=== PATIENT | male | born 1935 | race Caucasian/White ===

== ENCOUNTER 2021-02-10 09:38 | Emergency (ER) | payer MEDICARE, OTHER ==
[~2021-02-10] VITALS: Ht 162.6 cm; Wt 68.9 kg
--- NOTE | 2021-02-10 09:45 | NUR ---
BIB [id number],LACERATION TO FOREHEAD AND NASAL SWELLING, S/P TRIP/FALL WHILE WALKING IN SIDEWALK, NO LOSS OF CONSCIOUSNESS REPORTED. PATIENT A/OX4, [place] SPEAKING. EMT TRANSLATED FOR DR. DESHPANDE. PATIENT WAS ABLE TO RECALL INCIDENT. PATIENT CHANGED INTO A GOWN. ATTACHED TO THE AUDITOR IN CHARGE.
--- NOTE | 2021-02-10 10:00 | NUR ---
PATIENT TAKEN TO CT.
[2021-02-10 10:25] LABS: BASOPHILS % (AUTO) 0.4 % (0.0-2.0); EOSINOPHILS % (AUTO) 0.7 % (0.0-6.0); HEMATOCRIT 40 % (39-51); HEMOGLOBIN 13.2 g/dL (13.5-17.5); LYMPHOCYTES # (AUTO) 1.2 /CMM (0.8-4.8); LYMPHOCYTES % (AUTO) 15.6 % (20.0-44.0); MEAN CORPUSCULAR HGB CONC 33 g/dl (31.0-36.0); MEAN CORPUSCULAR VOLUME 90 fL (80-96); MONOCYTES # (AUTO) 0.3 /CMM (0.1-1.30); MONOCYTES % (AUTO) 3.7 % (2.0-12.0); NEUTROPHILS % (AUTO) 79.6 % (43.0-81.0); PLATELET COUNT (AUTO) 141 /CMM (150-450); RED BLOOD CELL COUNT(AUTO) 4.41 MIL/uL (4.5-6.0); WHITE BLOOD COUNT (AUTO) 7.5 K/uL (4.3-11.0)
--- NOTE | 2021-02-10 10:33 | NUR ---
PATIENT'S SON AT BEDSIDE.
[2021-02-10 10:53] LABS: ALBUMIN 3.3 g/dL (3.4-5.0); BILIRUBIN,DIRECT 0.1 mg/dL (0.0-0.2); BILIRUBIN,TOTAL 0.5 mg/dL (0.2-1.0); CALCIUM, SERUM 8.6 mg/dL (8.5-10.1); POTASSIUM 4.1 mmol/L (3.5-5.1); TOTAL PROTEIN, SERUM 6.9 g/dL (6.4-8.2)
--- NOTE | 2021-02-10 11:25 | NUR ---
PATIENT STOOD UP AND WAS ABLE TO AMBULATE PER SON HIS BASELINE. LAC REPAIR DONE, USED A DERMABOND FOR REPAIR. Patient discharged to home in stable condition. Written and verbal after care instructions given. Patient verbalizes understanding of instruction.
--- NOTE | 2021-02-10 11:37 | NUR ---
PATIENT A/OX4, BREATHING EVEN AND UNLABORED, NO SOB NOTED. PATIENT AMBULATES INDEPENDENTLY, AFTERCARE INSTRUCTIONS PROVIDED TO SON. Patient discharged to home in stable condition. Written and verbal after care instructions given. Patient verbalizes understanding of instruction.
[2021-02-10 11:38] VITALS: BP 124/66
== END 2021-02-10 11:39 | disposition home or self-care (01) ==
LOC: ER 09:41
DX: S01.81XA Laceration without foreign body of other part of head, initial encounter (principal); S01.21XA Laceration without foreign body of nose, initial encounter; I44.7 Left bundle-branch block, unspecified; W01.0XXA Fall on same level from slipping, tripping and stumbling without subsequent striking against object, initial encounter; Y93.01 Activity, walking, marching and hiking; Y92.89 Other specified places as the place of occurrence of the external cause; Y99.8 Other external cause status
CPT/HCPCS: 36415; 70450-TC; 71045-TC; 80048-TC; 80076-TC; 84484-TC; 85025-TC; 85730-TC

== ENCOUNTER 2021-08-29 22:38 | Inpatient (IN) | payer MEDICARE, OTHER ==
[~2021-08-29] VITALS: Ht 149.9 cm; Wt 69.9 kg
--- NOTE | 2021-08-29 23:01 | NUR ---
PATIENT BIBRA 102 FROM HOME C/O RIGHT SIDED WEAKNESS FOR THE PAST MONTH, PARTIAL RIGHT SIDED FACIAL DROOP. PER PATIENT SON, LEGS BECAME WEAKER TODAY. PATIENT IS A/O X 2-3, RR EVEN AND UNLABORED, NO SOB NOTED. PATIENT CONNECTED TO CARIDAC MONITOR AND POX.
--- NOTE | 2021-08-29 23:08 | NUR ---
CALLED CODE STROKE
--- NOTE | 2021-08-29 23:10 | NUR ---
TELEMED REQUEST IQ SENT, NEUROLOGIST PAGED
--- NOTE | 2021-08-29 23:12 | NUR ---
PT TO CT
[2021-08-29] MEDS ORDERED: IV NS 0.9% 0 ML IV ONE (23:13)
[2021-08-29] MEDS ORDERED: CT SWABBABLE VALVE TRANS SET 1 EA INFUS.SET MC ONE (23:13)
[2021-08-29] MEDS ORDERED: IOHEXOL-350 100 ML VIAL IV ONE (23:13)
--- NOTE | 2021-08-29 23:18 | NUR ---
Anselmo PERALTA. SPEAKING WITH Callum DOSS (NEURO)
[2021-08-29 23:20] LABS: BASOPHILS % (AUTO) 0.3 % (0.0-2.0); EOSINOPHILS % (AUTO) 0.6 % (0.0-6.0); HEMATOCRIT 39 % (39-51); HEMOGLOBIN 13.2 g/dL (13.5-17.5); LYMPHOCYTES # (AUTO) 1.4 K/uL (0.8-4.8); LYMPHOCYTES % (AUTO) 21.7 % (20.0-44.0); MEAN CORPUSCULAR HGB CONC 34 g/dl (31.0-36.0); MEAN CORPUSCULAR VOLUME 91 fL (80-96); MONOCYTES # (AUTO) 0.5 K/uL (0.1-1.30); MONOCYTES % (AUTO) 7.3 % (2.0-12.0); NEUTROPHILS # (AUTO) 4.5 K/uL (1.8-8.9); NEUTROPHILS % (AUTO) 70.1 % (43.0-81.0); PLATELET COUNT (AUTO) 153 K/uL (150-450); RED BLOOD CELL COUNT(AUTO) 4.31 MIL/uL (4.5-6.0); WHITE BLOOD COUNT (AUTO) 6.4 K/uL (4.3-11.0)
[2021-08-29 23:32] LABS: CARBON DIOXIDE 30 mmol/L (21-32); CHLORIDE 101 mmol/L (98-107); CREATININE 1.5 mg/dL (0.6-1.3); GLUCOSE 157 mg/dL (74-106); POTASSIUM 4.1 mmol/L (3.5-5.1); SODIUM SERUM 138 mmol/L (136-145); UREA NITROGEN, BLOOD 28 mg/dL (7-18)
[2021-08-29 23:43] LABS: ALANINE AMINOTRANSFERASE 15 U/L (12-78); ALBUMIN 3.5 g/dL (3.4-5.0); ALKALINE PHOSPHATASE 55 U/L (46-116); ASPARTATE AMINOTRANSFERASE 14 U/L (15-37); BILIRUBIN,DIRECT 0.1 mg/dL (0.0-0.2); BILIRUBIN,TOTAL 0.4 mg/dL (0.2-1.0); TOTAL PROTEIN, SERUM 6.9 g/dL (6.4-8.2)
[2021-08-30] MEDS ORDERED: MAGNESIUM HYDROXIDE 30 ML UDC PO PRN (00:30)
[2021-08-30] MEDS ORDERED: MAG HYDROX/AL HYDROX/SIMETH 30 ML UDC PO PRN (00:30)
[2021-08-30] MEDS ORDERED: ACETAMINOPHEN 325 MG TABLET PO PRN (00:30)
[2021-08-30] MEDS ORDERED: ONDANSETRON HCL/PF 4 MG/2 ML VIAL IVP PRN (00:30)
[2021-08-30] MEDS ORDERED: Z GUARD REMEDY 2 OZ OINT TP PRN (00:30)
[2021-08-30] MEDS ORDERED: TERA5CAP7 PO (08:28)
[2021-08-30] MEDS ORDERED: FURO40TA5 PO (08:28)
[2021-08-30] MEDS ORDERED: SACU1TAB4 PO (08:28)
[2021-08-30] MEDS ORDERED: ISOS30TA86 PO (08:28)
[2021-08-30] MEDS ORDERED: METO-358 PO (08:28)
[2021-08-30] MEDS ORDERED: ASPI-1420 PO (08:28)
[2021-08-30] MEDS ORDERED: APIX5TAB PO (08:28)
[2021-08-30] MEDS ORDERED: POTA8TAB3 PO (08:28)
[2021-08-30] MEDS ORDERED: ASPIRIN EC 81 MG TABLET.DR PO ONE (09:14)
[2021-08-30] MEDS: ASPIRIN EC 81 MG TABLET.DR PO SCH (09:15)
--- NOTE | 2021-08-30 11:30 | NUR ---
DR KIRK AT BEDSIDE
--- NOTE | 2021-08-30 12:38 | NUR ---
[facility] [phone] WANTS UPDATE WHEN ROOM CHANGES
[2021-08-30] MEDS ORDERED: ASPIRIN EC 81 MG TABLET.DR PO SCH (16:00)
[2021-08-30] MEDS: METOPROLOL SUCCINATE 50 MG TAB.SR.24H PO SCH (16:50)
[2021-08-30] MEDS: TERAZOSIN HCL 5 MG CAPSULE PO SCH (17:04)
[2021-08-30] MEDS ORDERED: APIXABAN 5 MG TABLET ONE (17:12)
[2021-08-30] MEDS: APIXABAN 5 MG TABLET PO SCH (17:15)
--- NOTE | 2021-08-30 17:42 | NUR ---
bed assigned [phone] for next shift
[2021-08-30 20:00] VITALS: BP 148/69
--- NOTE | 2021-08-30 20:45 | NUR ---
gave report to kemi Mae radha
--- NOTE | 2021-08-30 20:50 | NUR ---
RN NOTES: AT 2041 RECEIVED ENDORSEMENT FROM ATUL/ER/RN: -PATIENT WAS BROUGHT BY HIS SON IN ER, PER SON HISTORY OF COVID(+) EARLIER THIS YEAR, HE HAS GENERAL WEAKNESS, NOT ON HIMSELF FOR A MONTH, MEMORY PROBLEMS AND RIGHT SIDED WEAKNESS, ABLE TO WALK BEFORE BUT THIS PAST FEW DAYS VERY WEAK, TOGOLESE SPEAKING.NKA,ON ELIQUIZ,IV CANNULA RAC G#18, DX:GEMA, NO SKIN ISSUE,WHEELCHAIR BOUND.
--- NOTE | 2021-08-30 20:54 | NUR ---
[facility] MON[facility] UPDATED ABOUT ROOM CHANGE
[2021-08-30] MEDS ORDERED: HEPARIN SODIUM, PORCINE 5000 UNITS/1 ML VIAL SQ SCH (21:00)
[2021-08-30 21:10] VITALS: BP 148/69
--- NOTE | 2021-08-30 21:10 | NUR ---
RN NOTES: AT 2103 BROUGHT BY ER STAFF VIA ANGELIA ON SEMICONDUCTOR TESTING GROUP LEADER, TELE PATIENT, ON SINUS RHYTHM RATE-75, A/OX1 TO SELF ONLY, FARSI SPEAKING, CAN UNDERSTAND VERY LITTLE DANISH, HE WAS BROUGHT IN BY FAMILY DUE TO ALTERED IN LEVEL OF CONSCIOUSNESS, DX:GEMA, MED-RECON DONE IN ER.HE RECIEVED ASPIRIN 81MG, K TAB 10 mEQ,LASIX 40 MG AND HEPARIN 5,000 UNIT IN ER. IV CANNULA RAC G#18, PATENT. BODY ASSESSMENT DON: 1)SKIN DISCOLORATION ON THE RIGHT UPPER EXTREMITY 2) MULTIPLE SCATTERED RED SPOTS ON THE FRONTAL AND BACK AREA ALONG WITH BROWN PIGMENTATION AND SKIN TAGS. 3) NO EDEMA ON BUR AND BLE 4)RLE-OLD SCAR 5)NO BUMP ON THE HEAD,NO SWELLING ON THE RIGHT AND LEFT SHOULDER, NO SHORTENING ON BUE AND BLE. --ORIENTED TO UNIT AND STAFF, WE CONTINUE TO TALK HE COMMUNICATE MORE BETTER , A/O 1-2 WITH PERIODS OF CONFUSION AND FORGETFULNESS, HE WANTS TO GO HOME HE IS ASKING "WHY IM HERE?" RN EXPLAINED TO HIM SHORT AND IN SIMPLE WORDS HE UNDERSTAND.
[2021-08-30] MEDS: ATORVASTATIN 10 MG TABLET PO SCH (22:08)
--- NOTE | 2021-08-30 22:21 | NUR ---
RN NOTES: HE WANTS TO PEE, ASSISTED TO USE THE URINAL AT BED SIDE, ABLE TO TAKE HIS MEDS CRUSHED WITH APPLE SAUCE.TAKEN. Addendum: 08/30/21 at 2258 by BRODY HOWE RN ADDED NOTES: MEDICATION WAS PULLED OUT BY SANTOSH FROM THE [facility].
--- NOTE | 2021-08-30 22:58 | NUR ---
RN NOTES: IVF NS PULLED OUT BY JAI/RN FROM THE [facility], STARTED AT 60 ML/HR.PATIENT ON CLOSE WATCH, TRYING TO GET UP IN BED, CALL LIGHT KEPT WITHIN EASY REACH.BED LOW AND LOCKED.
[2021-08-30] MEDS: IV NS 0.9% 1,000 ML IV PRN (23:02)
[2021-08-31] VITALS: BP 146/78
--- NOTE | 2021-08-31 00:51 | NUR ---
RN NOTES: CALLS AND NEED ANTICIPATED, HE IS TRYING TO GET UP FROM HIS BED, EXPLAINED BY RN AND COMMERCIAL SINGER TO BE CAREFUL BECAUSE HE LOOKS WEAK AND UNABLE TO STAND WITHOUT SUPPORT AND ASSISTANCE HE WANTS TO GET UP WHEN HE PEE, EXPLAINED TO HE CAN PEE O THE URINAL.
[2021-08-31 04:00] VITALS: BP 144/67
--- NOTE | 2021-08-31 05:17 | NUR ---
RN NOTES: AT 0400 TO CHECK ORTHOSTATIC BP, SAMARA LYING POSITION WAS CHECKED BP-144/67 RI-70, UNABLE TO CHECK SITTING SHE WAS IN DEEP SLEEP, UNABLE TO TAKE STANDING BECAUSE UNABLE TO STAND, GAIT IS UNSTEADY. WILL TRY TO CHECK IT LATER WHEN HE IS AWAKE.
[2021-08-31 06:48] LABS: BASOPHILS % (AUTO) 0.6 % (0.0-2.0); EOSINOPHILS % (AUTO) 1.2 % (0.0-6.0); HEMATOCRIT 39 % (39-51); HEMOGLOBIN 13.2 g/dL (13.5-17.5); LYMPHOCYTES # (AUTO) 1.3 K/uL (0.8-4.8); LYMPHOCYTES % (AUTO) 20.2 % (20.0-44.0); MEAN CORPUSCULAR HGB CONC 34 g/dl (31.0-36.0); MEAN CORPUSCULAR VOLUME 91 fL (80-96); MONOCYTES # (AUTO) 0.5 K/uL (0.1-1.30); MONOCYTES % (AUTO) 7.6 % (2.0-12.0); NEUTROPHILS # (AUTO) 4.4 K/uL (1.8-8.9); NEUTROPHILS % (AUTO) 70.4 % (43.0-81.0); PLATELET COUNT (AUTO) 126 K/uL (150-450); RED BLOOD CELL COUNT(AUTO) 4.31 MIL/uL (4.5-6.0); WHITE BLOOD COUNT (AUTO) 6.3 K/uL (4.3-11.0)
[2021-08-31 07:09] LABS: ALBUMIN 3.3 g/dL (3.4-5.0); BILIRUBIN,TOTAL 0.7 mg/dL (0.2-1.0); CALCIUM, SERUM 9.5 mg/dL (8.5-10.1); MAGNESIUM 2.2 mg/dL (1.8-2.4); PHOSPHORUS 3.6 mg/dL (2.5-4.9); POTASSIUM 4.3 mmol/L (3.5-5.1); TOTAL PROTEIN, SERUM 6.8 g/dL (6.4-8.2)
--- NOTE | 2021-08-31 07:39 | NUR ---
RN NOTES: UNABLE TO CHECK ORTHOSTATIC BP, HE IS STILL ASLEEP,FOR LABS THIS MORNING, KEPT CALL LIGHT WITHIN EASY REACH, FALL AND SAFETY PRECAUTION OBSERVED, ENDORSED FOR CONTINUITY OF CARE.
--- NOTE | 2021-08-31 07:54 | NUR ---
MS RN AM SHIFT NOTES - OPENING REPORT RECEIVED FROM PM RN AT BEDSIDE. Pt. WITHOUT ACUTE DISTRESS AT THIS TIME. EYES CLOSED. RR EVEN AND UNLABORED. VSS.
--- NOTE | 2021-08-31 08:20 | NUR ---
RN NOTES ITINERANT TEACHER ASSISTANT AT BEDSIDE.
[2021-08-31] MEDS ORDERED: FUROSEMIDE 40 MG TABLET PO SCH (09:00)
[2021-08-31] MEDS ORDERED: POTASSIUM CHLORIDE 10 MEQ TABLET.SA PO SCH (09:00)
[2021-08-31] MEDS: ASPIRIN EC 81 MG TABLET.DR PO SCH (09:12)
[2021-08-31] MEDS: ISOSORBIDE MONONITRATE (30MG) 30 MG TAB.SR.24H PO SCH (09:13)
[2021-08-31] MEDS: APIXABAN 5 MG TABLET PO SCH ×2 (09:13→16:16)
--- NOTE | 2021-08-31 09:15 | NUR ---
MS RN NOTES J2EE PROGRAMMER AT Pt BEDSIDE FOR ECHO AND CAROTID DUPLEX COMPLETED
--- NOTE | 2021-08-31 09:20 | NUR ---
RN NOTES PATIENT SEEN BY PT FOR EVAL.
--- NOTE | 2021-08-31 10:52 | NUR ---
RN NOTES FAMILY/VISITOR AT BEDSIDE; WAS INFORMED THAT PATIENT HAD MENTAL/PHYSICAL CHANGES BACK IN OCTOBER OF THIS YEAR DURING COVID BUT WAS NOT TAKEN TO THE HOSPITAL. EXPLAINED TO FAMILY/VISITOR THAT PATIENT MAY HAVE HAD A POSSIBLE CVA AT THAT TIME AND IMPORTANCE OF HIS SYMPTOMS TO BE CHECKED AT THE HOSPITAL; VERBALIZED UNDERSTANDING. WILL CONTINUE TO MONITOR PATIENT ACCORDINGLY.
--- NOTE | 2021-08-31 13:00 | NUR ---
RN NOTES PATIENT SEEN BY DR. KIRK TODAY; WILL HAVE NEURO CONSULT IN AM. PATIENT ABLE TO USE FWW W/ MIN-MOD ASSISTANCE FOR AMBULATION. ENCOURAGED TO REST WHENEVER POSSIBLE.
[2021-08-31] MEDS: METOPROLOL SUCCINATE 50 MG TAB.SR.24H PO SCH (16:16)
--- NOTE | 2021-08-31 17:13 | NUR ---
RN NOTES PATIENT CURRENTLY EATING DINNER AT THE MOMENT; ASSISTED W/ MEAL SET-UP IN BED. ABLE TO USE LUE FOR EATING.
[2021-08-31] MEDS: TERAZOSIN HCL 5 MG CAPSULE PO SCH (17:15)
--- NOTE | 2021-08-31 19:20 | NUR ---
TRANSMISSION TECHNICIAN OPENING NOTES Patient is awake, A&Ox1, denies pain or discomfort. Patient repositioned weak on R side slurred speech as per admission baseline. 3 side rails up bed alarm on, bed height low, call light within reach. No signs of distress. Sr on monitor. Will continue to monitor pt.
[2021-08-31 20:00] VITALS: BP 130/61
[2021-08-31] MEDS: ATORVASTATIN 10 MG TABLET PO SCH (21:26)
[2021-09-01] VITALS: BP 127/63
[2021-09-01 04:00] VITALS: BP 148/79
--- NOTE | 2021-09-01 06:10 | NUR ---
CLOSING RN NOTES Patient stable overnight. VS WNL. SR with BBB in 60s on monitor. No change in mental status. Patient had 1 episode of incontinence but changed promptly otherwise pt. using urinal with clear yellow urine output. IV to RAC #18G patent and intact infusing NS at 60cc/hr.
[2021-09-01] MEDS: IV NS 0.9% 1,000 ML IV PRN (06:16)
--- NOTE | 2021-09-01 07:30 | NUR ---
AIR CARGO SPECIALIST OPENING NOTES RECEIVED PT AWAKE IN BED IN NO ACUTE SIGNS OF DISTRESS. A/O X1-2. ROMANSH SPEAKING DENIES PAIN OR ANY DISCOMFORTS AT THIS TIME. ON ROOM AIR, RESPIRATIONS EVEN AND UNLABORED. ON EXTERNAL BATH SOLUTION MAKER WITH CURRENT READING OF NSR WITH BBB'S, HR ON THE 60'S, NO C/O CARDIAC DISTRESS VOICED AT THIS TIME. IV ACCESS ON RAC G#19 INTACT WITH IVF OF NS @ 60ML/HR INFUSING WELL, NO S/SX OF INFILTRATION NOTED. FALL AND SAFETY MEASURES IN PLACE: BED ALARM ON, BED IN LOW AND LOCKED POSITION, CALL LIGHT AND BEDSIDE TABLE WITHIN REACH. SIDE RAILS UP X2. WILL CONTINUE TO MONITOR PT ACCORDINGLY.
[2021-09-01] MEDS: ASPIRIN EC 81 MG TABLET.DR PO SCH (08:25)
[2021-09-01] MEDS: APIXABAN 5 MG TABLET PO SCH ×2 (08:25→16:27)
[2021-09-01] MEDS: ISOSORBIDE MONONITRATE (30MG) 30 MG TAB.SR.24H PO SCH (08:26)
[2021-09-01 09:33] VITALS: BP 158/74
--- NOTE | 2021-09-01 11:19 | NUR ---
RN NOTES PHYSICAL THERAPY DONE WITH PHYSICAL THERAPIST. PT WALKED WITH FWW WITH ASSISTANCE CONTACT GUARD ASSIST.
[2021-09-01 15:59] VITALS: BP 108/61
[2021-09-01] MEDS ORDERED: ATOR10TA PO (16:03)
[2021-09-01] MEDS: METOPROLOL SUCCINATE 50 MG TAB.SR.24H PO SCH (16:26)
[2021-09-01] MEDS: TERAZOSIN HCL 5 MG CAPSULE PO SCH (17:04)
--- NOTE | 2021-09-01 18:41 | NUR ---
MS RN CLOSING NOTES PT AWAKE IN BED WITH DAUGHTER PRESENT AT BEDSIDE. HOB ELEVATED. A/O X1-2. GREENLANDIC SPEAKING WITH SOME CONFUSION NOTED . ON ROOM AIR, TOLERATING WELL, RESPIRATIONS EVEN AND UNLABORED. IV ACCESS ON RAC G#18 INTACT, PATENT AND FLUSHES WELL. PT TURNED AND REPOSITIONED IN BED Q 2HRS AND PRN. ALL NEEDS AND CARE PROVIDED WELL. FALL AND SAFETY MEASURES IN PLACE: BED ALARM ON, BED IN LOW AND LOCKED POSITION, CALL LIGHT AND BEDSIDE TABLE WITHIN REACH. SIDE RAILS UP X2. WILL ENDORSE TO DIET ASSISTANT NURSE FOR OSVALDO.
--- NOTE | 2021-09-01 19:30 | NUR ---
ODD PIECE CHECKER OPENING NOTES RECEIVED PATIENT AWAKE LAYING IN BED. PATIENT IS A/O X1-2. PATIENT IS STABLE ON ROOM AIR. IV ACCESS NOTED IN RAC G#18, WHICH IS INTACT, PATENT, AND FLUSHING WELL. PATIENT'S IN NO ACUTE DISTRESS AT THIS TIME. SAFETY MEASURES IN PLACE: BED LOCKED, BED ALARM ON, SR UPX3, AND CALL LIGHT WITHIN REACH OF THE PATIENT. WILL CONTINUE TO MONITOR THE PATIENT
[2021-09-01 20:00] VITALS: BP 120/55
[2021-09-01] MEDS: ATORVASTATIN 10 MG TABLET PO SCH (21:04)
[2021-09-02] VITALS: BP 121/56
[2021-09-02 04:00] VITALS: BP 134/73
[2021-09-02 06:50] LABS: BASOPHILS % (AUTO) 0.5 % (0.0-2.0); EOSINOPHILS % (AUTO) 2.9 % (0.0-6.0); HEMATOCRIT 37 % (39-51); HEMOGLOBIN 12.2 g/dL (13.5-17.5); LYMPHOCYTES % (AUTO) 20.9 % (20.0-44.0); MEAN CORPUSCULAR HGB CONC 34 g/dl (31.0-36.0); MEAN CORPUSCULAR VOLUME 90 fL (80-96); MONOCYTES # (AUTO) 0.4 K/uL (0.1-1.30); MONOCYTES % (AUTO) 7.8 % (2.0-12.0); NEUTROPHILS # (AUTO) 3.4 K/uL (1.8-8.9); NEUTROPHILS % (AUTO) 67.9 % (43.0-81.0); PLATELET COUNT (AUTO) 125 K/uL (150-450); RED BLOOD CELL COUNT(AUTO) 4.06 MIL/uL (4.5-6.0)
[2021-09-02 07:09] LABS: CALCIUM, SERUM 8.7 mg/dL (8.5-10.1); CREATININE 0.9 mg/dL (0.6-1.3); MAGNESIUM 1.8 mg/dL (1.8-2.4); PHOSPHORUS 3.6 mg/dL (2.5-4.9); POTASSIUM 3.9 mmol/L (3.5-5.1)
--- NOTE | 2021-09-02 07:30 | NUR ---
ELECTRICAL PROSPECTOR NOTES PT IN BED, ASLEEP, EASILY AROUSABLE, CALL LIGHT WITHIN REACH, NO SIGN OF PAIN OR DISTRESS, KEPT WARM AND COMFORTABLE IN BED.
[2021-09-02 08:25] VITALS: BP 158/76
[2021-09-02] MEDS: ASPIRIN EC 81 MG TABLET.DR PO SCH (08:26)
[2021-09-02 08:28] VITALS: BP 135/70
[2021-09-02] MEDS: ISOSORBIDE MONONITRATE (30MG) 30 MG TAB.SR.24H PO SCH (08:28)
[2021-09-02] MEDS: APIXABAN 5 MG TABLET PO SCH (08:30)
--- NOTE | 2021-09-02 14:25 | NUR ---
MS ARMY MANAGER NOTE: MD EVALUATION COMPLETE. Pt. CLEARED FOR D/C TO HOME WITH HH. Pt's SON AT BEDSIDE, D/C INSTRUCTIONS PROVIDED VERBALLY. SON VERBALIZES UNDERSTANDING, NO F/U QUESTIONS. PRINTED INSTRUCTIONS SIGNED, COPIES SENT WITH SON. INVENTORY SHEET SIGNED AND COPY SENT WITH SON. RX ELECTRONICALLY SENT. Pt. IN NAD AND STABLE AT TIME OF D/C. NO NEW SKIN ISSUES NOTED/OBSERVED/REPORTED. R PERIPHERAL IV D/C WITH CATHETER TIP INTACT. Pt. 2 PERSON ASSIST TO W/C, ESCORTED TO SON'S CAR, 2 PERSON ASSIST INTO VEHICLE, SEATBELT APPLIED
== END 2021-09-02 14:30 | disposition home health service (06) | DRG 684 ==
LOC: ER 22:38 → TRANSITION 08-30 04:29 → TELE 08-30 17:46 → MED 09-02 10:01
PROVIDERS: ADMIT Nurse Practitioner Acute Care; ATTEND Internal Medicine
DX: N17.0 Acute kidney failure with tubular necrosis (principal); Z86.16 Personal history of COVID-19; Z20.822 Contact with and (suspected) exposure to COVID-19; I25.10 Atherosclerotic heart disease of native coronary artery without angina pectoris; I11.0 Hypertensive heart disease with heart failure; I50.9 Heart failure, unspecified; E11.9 Type 2 diabetes mellitus without complications; F03.90 Unspecified dementia, unspecified severity, without behavioral disturbance, psychotic disturbance, mood disturbance, and anxiety; Z79.01 Long term (current) use of anticoagulants; Z86.73 Personal history of transient ischemic attack (TIA), and cerebral infarction without residual deficits; Z95.0 Presence of cardiac pacemaker; Z95.1 Presence of aortocoronary bypass graft; Z95.2 Presence of prosthetic heart valve; R47.81 Slurred speech; I65.22 Occlusion and stenosis of left carotid artery
CPT/HCPCS: 36415; 70450-TC; 71045-TC; 80048-TC; 80053-TC; 80061-TC; 80076-TC; 83735-TC; 84100-TC; 84484-TC; 85025-TC; 85378-TC; 85730-TC; 87081-TC; 93307-TC; 93880-TC; 93970-TC; 97112-TC; 97116-TC; 97530-TC; C9803; G0378; J2405; J7030; J7050; Q9967

== ENCOUNTER 2022-04-14 11:20 | Emergency (ER) | payer MEDICARE, OTHER ==
[~2022-04-14] VITALS: Ht 172.7 cm; Wt 61.2 kg
[~2022-04-14 11:20] MED LIST: APIX5TAB PO; ASPI-1420 PO; ATOR10TA PO; FURO40TA5 PO; ISOS30TA86 PO; METO-358 PO; POTA8TAB3 PO; SACU1TAB4 PO; TERA5CAP7 PO
--- NOTE | 2022-04-14 11:30 | NUR ---
VICTORINA RAAnat From Home "Wheelchair Bound was trying to get up and fell face forward. Hx CVA 6mos ago. Oriented to self only- Normal Mentation". The patient is alert to self, able to communicate verbally. In room air, respiration regular and unlabored. The patient is attached to the monitor. Will continue to monitor the patient.
--- NOTE | 2022-04-14 12:00 | NUR ---
TECH AT BEDSIDE FOR WOUND CARE
--- NOTE | 2022-04-14 13:34 | NUR ---
PT RETURNED FROM RADIOLOGY
[2022-04-14] MEDS ORDERED: LIDOCAINE 1% INJ 50 ML MDV IJ ONE (13:42)
--- NOTE | 2022-04-14 14:19 | NUR ---
DR RAMOS AT BEDSIDE FOR LAC REPAIR
--- NOTE | 2022-04-14 15:28 | NUR ---
CALLED [facility] AND SET UP BLS TRANSPORT ETA [phone]
--- NOTE | 2022-04-14 17:18 | NUR ---
NEW ETA [phone] PER "[facility]" [facility].
--- NOTE | 2022-04-14 18:06 | NUR ---
REPORT GIVEN TO AMBULANCE STAFF
--- NOTE | 2022-04-14 18:49 | NUR ---
THE PATIENT IS DISCHARGED TO HOME IN STABLE CONDITION VIA ARRANGED TRANSPO
[2022-04-14 18:50] VITALS: BP 128/67
== END 2022-04-14 18:50 | disposition home or self-care (01) ==
LOC: ER 11:21
DX: S01.81XA Laceration without foreign body of other part of head, initial encounter (principal); Z79.899 Other long term (current) drug therapy; W05.0XXA Fall from non-moving wheelchair, initial encounter; Y93.89 Activity, other specified; Y92.89 Other specified places as the place of occurrence of the external cause; Y99.8 Other external cause status
CPT/HCPCS: 12013; 70450; 72125; 99285; J3490

== ENCOUNTER 2023-01-17 19:35 | Inpatient (IN) | payer MEDICARE, OTHER ==
[~2023-01-17] VITALS: Ht 160 cm; Wt 57.6 kg
[~2023-01-17 19:35] MED LIST changes: +FUROSEMIDE 20 MG/2 ML VIAL IV ONE
--- NOTE | 2023-01-17 19:50 | NUR ---
[id number] FROM HOME C/O SOB X2DAYS. SATTING 84% RA. ON O2 4LPM VIA N/C SATS 94% PT IS AAOX0. AWAKE BUT CANNOT COMMUNICATE WELL. CAME WITH BILATERAL UPPER AND LOWER EXTREMITIES EDEMA, WITH DRESSED WOUNDS ON RIGHT ELBOW, BILATERAL FEET AND CUSHION ON LEFT FOOT. PATIENT HAS IV ACCESS ON LEFT FA G20. +SOB, + CRACKLES BILATERAL LUNGS. ATTACHED TO MONITOR. VITALS CHECKED.
--- NOTE | 2023-01-17 19:57 | NUR ---
EKG DONE AT BEDSIDE
--- NOTE | 2023-01-17 20:00 | NUR ---
BLOOD DRAWN AND SENT TO LAB
--- NOTE | 2023-01-17 20:04 | NUR ---
MOVE SHEET SUBMITTED.
--- NOTE | 2023-01-17 20:18 | NUR ---
COVID SWAB DONE AND SENT TO LAB
--- NOTE | 2023-01-17 20:19 | NUR ---
URINE SPECIMEN COLLECTED AND SENT TO LAB
[2023-01-17 20:22] LABS: BASOPHILS % (AUTO) 0.3 % (0.0-2.0); EOSINOPHILS % (AUTO) 0.1 % (0.0-6.0); HEMATOCRIT 36 % (39-51); HEMOGLOBIN 11.2 g/dL (13.5-17.5); LYMPHOCYTES % (AUTO) 8.1 % (20.0-44.0); MEAN CORPUSCULAR HGB CONC 32 g/dl (31.0-36.0); MEAN CORPUSCULAR VOLUME 90 fL (80-96); MONOCYTES # (AUTO) 0.4 K/uL (0.1-1.30); NEUTROPHILS # (AUTO) 10.6 K/uL (1.8-8.9); NEUTROPHILS % (AUTO) 88.5 % (43.0-81.0); PLATELET COUNT (AUTO) 139 K/uL (150-450); RED BLOOD CELL COUNT(AUTO) 3.99 MIL/uL (4.5-6.0); WHITE BLOOD COUNT (AUTO) 11.9 K/uL (4.3-11.0)
--- NOTE | 2023-01-17 20:32 | NUR ---
FOLLOWED UP CLIENT RESOLUTION SPECIALIST
--- NOTE | 2023-01-17 20:39 | NUR ---
IVETTE RDZ AT BEDSIDE
--- NOTE | 2023-01-17 20:39 | NUR ---
XRAY DONE AT BEDSIDE
[2023-01-17 20:44] LABS: CALCIUM, SERUM 8.5 mg/dL (8.5-10.1); CARBON DIOXIDE 23 mmol/L (21-32); CHLORIDE 104 mmol/L (98-107); CREATININE 0.8 mg/dL (0.6-1.3); GLUCOSE 176 mg/dL (74-106); POTASSIUM 5.2 mmol/L (3.5-5.1); SODIUM SERUM 134 mmol/L (136-145); UREA NITROGEN, BLOOD 25 mg/dL (7-18)
[2023-01-17 20:48] LABS: ALANINE AMINOTRANSFERASE 30 U/L (12-78); ALBUMIN 2.5 g/dL (3.4-5.0); ALKALINE PHOSPHATASE 85 U/L (46-116); ASPARTATE AMINOTRANSFERASE 35 U/L (15-37); BILIRUBIN,DIRECT 0.2 mg/dL (0.0-0.2); BILIRUBIN,TOTAL 0.6 mg/dL (0.2-1.0); TOTAL PROTEIN, SERUM 5.9 g/dL (6.4-8.2)
--- NOTE | 2023-01-17 20:53 | NUR ---
LACTIC ACID 2.2
--- NOTE | 2023-01-17 21:15 | NUR ---
PLACED PT ON NRB AT 15LPM. PT SATURATIONG 98%
--- NOTE | 2023-01-17 21:16 | NUR ---
dr rai on the phone with the family discussing patient's condition and code status.
--- NOTE | 2023-01-17 21:28 | NUR ---
NOELLE YIP PCAT INSTRUCTOR AT PT'S BEDSIDE FOR EVAL
--- NOTE | 2023-01-17 21:43 | NUR ---
TROPONIN 217.7
--- NOTE | 2023-01-17 21:50 | NUR ---
DR MOLINA SPOKE TO THE PATIENT'S SON AND DAUGHTER AT THE BED SIDE REGARDING PT'S CODE STATUS AND EXPLAINED THE OPTIONS. SON SIGNED THE POLST DNR/DRI WITH SELECTIVE MEASURES. NOELLE YIP, HOSPITALIST MADE AWARE.
[2023-01-17 21:51] LABS: BILIRUBIN,URINE NEGATIVE (NEGATIVE); COLOR,URINE YELLOW (YELLOW); LEUKOCYTE ESTERASE ,URINE TRACE (NEGATIVE); NITRITE, URINE NEGATIVE (NEGATIVE); PH,URINE 5.5 (5.0-8.0); PROTEIN,URINE TRACE mg/dl (NEGATIVE); UGLUCOSE NEGATIVE (NEGATIVE); UROBILINOGEN,URINE 0.2 EU/dL (0.2)
[2023-01-17] MEDS ORDERED: PIPERACILLIN /TAZOBACTAM 3.375 G VIAL IV ONE (21:57)
[2023-01-17] MEDS ORDERED: VANCOMYCIN 1 GM VIAL ONE (21:57)
[2023-01-17] MEDS ORDERED: ONDANSETRON HCL/PF 4 MG/2 ML VIAL IVP PRN (22:00)
[2023-01-17] MEDS ORDERED: VANCOMYCIN 1 GM in IV D5W 250 ML IV ONE (22:00)
[2023-01-17] MEDS ORDERED: FUROSEMIDE 20 MG/2 ML VIAL IV ONE (22:00)
[2023-01-17] MEDS ORDERED: PIPERACILLIN /TAZOBACTAM 3.375 G in IV D5W 50 ML IV ONE (22:00)
[2023-01-17] MEDS ORDERED: ENOXAPARIN SODIUM 40 MG/0.4 ML DISP.SYRIN SQ SCH ×2 (22:00→23:30)
[2023-01-17] MEDS ORDERED: MAG HYDROX/AL HYDROX/SIMETH 30 ML UDC PO PRN (22:00)
[2023-01-17] MEDS ORDERED: Z GUARD REMEDY 4 OZ OINT TP PRN (22:00)
[2023-01-17] MEDS ORDERED: MAGNESIUM HYDROXIDE 30 ML UDC PO PRN (22:00)
[2023-01-17] MEDS ORDERED: LEVALBUTEROL HCL NEB 1.25 MG/0.5 ML VIAL.NEB NEB PRN (22:00)
[2023-01-17] MEDS ORDERED: ACETAMINOPHEN 325 MG TABLET PO PRN (22:00)
--- NOTE | 2023-01-17 22:10 | NUR ---
REPORT GIVEN TO AVELINO PARKER
[2023-01-17 22:21] LABS: BACTERIA,URINE 4+ /HPF (None Seen); RBC,URINE 0-2 /HPF (0-2)
[2023-01-17 22:22] LABS: MUCUS,URINE Moderate /LPF (None Seen)
[2023-01-17] MEDS ORDERED: IV NS 0.9% 500 ML BAG IV ONE (22:30)
--- NOTE | 2023-01-17 22:32 | NUR ---
TRANSFERRED TO [facility] UNDER ACLS
[2023-01-17 22:35] VITALS: BP 115/73
--- NOTE | 2023-01-17 22:35 | NUR ---
INSURANCE VERIFY REP NOTES ADMITTED A 87 Y/O MALE PATIENT FROM ER, VIA STRETCHER WITH DX RESPIRATORY FAILURE. ALERT ORIENTED X 1, ON NRB @ 15 LPM SATING AT 97%. AFEBRILE, NO S/S OF DISTRESS NOTED. NOTED WITH LEFT FOREARM #20 PERIPHERAL LINE, RUNNING WITH VANCOMYCIN, STARTED AT ER. BODY ASSESSMENT DONE TOOK PHOTO AND PLACED IT IN PATIENT CHART. V/S TAKEN AND RECORDED. ALL SAFETY PRECAUTION PROVIDED. BED IN LOWEST POSITION, LOCKED. BED ALARM ARMED. CALL LIGHT WITH IN REACH. CONTINUE TO MONITOR.
[2023-01-17] MEDS ORDERED: CEFTRIAXONE 1 G in IV D5W 50 ML IV SCH (23:00)
[2023-01-17] MEDS ORDERED: AZITHROMYCIN 500 MG in IV D5W 250 ML IV SCH (23:00)
--- NOTE | 2023-01-17 23:19 | NUR ---
RN NOTES PER DNP NOELLE YIP, DO NOT ADMINISTER THE NS 500ML IV ONCE. NOTED AND CARRIED OUT
[2023-01-18] VITALS: BP 130/72
--- NOTE | 2023-01-18 00:20 | NUR ---
RN NOTES NOTIFIED KESHA YIP REGARDING LATEST LACTIC ACID- 2.0. NO NEW ORDER.
[2023-01-18] MEDS: IPRATROPIUM NEB FS 0.5 MG/2.5 ML AMPUL.NEB NEB SCH ×2 (03:48→08:41)
[2023-01-18 04:00] VITALS: BP 135/83
[2023-01-18] MEDS ORDERED: PIPERACILLIN /TAZOBACTAM 3.375 G in IV D5W 50 ML IV SCH (04:00)
--- NOTE | 2023-01-18 04:05 | NUR ---
RN NOTE TRANSFER OF CARE RECEIVED FROM YAHAIRA YOU.
[2023-01-18] MEDS ORDERED: PIPERACILLIN /TAZOBACTAM 3.375 G VIAL IV ONE (05:04)
--- NOTE | 2023-01-18 05:06 | NUR ---
RN NOTE ABG DONE BY RT GALEANO. NOELLE YIP NP MADE AWARE OF THE RESULT; AWAITING REPLY. PATIENT PLACED ON 5 LPM VIA NASAL CANNULA. WILL CONTINUE TO MONITOR
[2023-01-18 05:13] LABS: ABG BASE EXCESS -2.3 mmol/L; ABG OXYGEN SATURATION 99.3 % (92.0-98.5); ABG PCO2 46.4 mmHg (35.0-45.0); ABG PH 7.329 (7.350-7.450); ABG PO2 271.7 mmHg (75.0-100.0); AaDO2 394.9 mmHg; COHb 0.3 % (0.5-1.5); MetHb 0.1 % (0.0-1.5); O2Hb 98.9 % (94.0-97.0); SITE, ABG Right Radial; VENT MODE, BG 15L NRB 100%
[2023-01-18 07:17] LABS: CALCIUM, SERUM 8.2 mg/dL (8.5-10.1); CARBON DIOXIDE 24 mmol/L (21-32); CHLORIDE 103 mmol/L (98-107); CREATININE 0.7 mg/dL (0.6-1.3); GLUCOSE 153 mg/dL (74-106); MAGNESIUM 2.1 mg/dL (1.8-2.4); PHOSPHORUS 4.5 mg/dL (2.5-4.9); POTASSIUM 4.6 mmol/L (3.5-5.1); SODIUM SERUM 134 mmol/L (136-145); UREA NITROGEN, BLOOD 24 mg/dL (7-18)
[2023-01-18 07:21] LABS: BASOPHILS % (AUTO) 0.1 % (0.0-2.0); HEMATOCRIT 33 % (39-51); HEMOGLOBIN 10.7 g/dL (13.5-17.5); LYMPHOCYTES # (AUTO) 0.7 K/uL (0.8-4.8); LYMPHOCYTES % (AUTO) 7.6 % (20.0-44.0); MEAN CORPUSCULAR HGB CONC 33 g/dl (31.0-36.0); MEAN CORPUSCULAR VOLUME 88 fL (80-96); MONOCYTES # (AUTO) 0.4 K/uL (0.1-1.30); NEUTROPHILS # (AUTO) 8.3 K/uL (1.8-8.9); NEUTROPHILS % (AUTO) 88.3 % (43.0-81.0); PLATELET COUNT (AUTO) 91 K/uL (150-450); RED BLOOD CELL COUNT(AUTO) 3.72 MIL/uL (4.5-6.0); WHITE BLOOD COUNT (AUTO) 9.4 K/uL (4.3-11.0)
--- NOTE | 2023-01-18 07:23 | NUR ---
RN NOTE PATIENT IN BED; AWAKE, NONVERBAL. ON O2 INHALATION @ 3 LPM VIA NASAL CANNULA; SATURATING 98%. IN NO APPARENT DISTRESS. NO S/S OF PAIN OR DISCOMFORT. WITH IV ACCESS ON LEFT HAND; PATENT, INTACT AND SALINE LOCKED. ON TELE MONITORING WITH READING OF SR WITH PVC'S, PAC'S AND BBB HR-88 BPM. ALL NEEDS ATTENDED. SAFETY PRECAUTIONS IN PLACE: HEAD OF BED ELEVATED, CALL LIGHT AND TABLE WITHIN REACH, SIDE RAILS UP X 3, BED IN LOWEST LOCKED POSITION. ENDORSED TO AVELINO SANTILLAN FOR OSVALDO.
[2023-01-18 08:00] VITALS: BP 128/79
--- NOTE | 2023-01-18 08:45 | NUR ---
WOUND CARE CONSULT: PT PRESENTS WITH MULTIPLE WOUNDS AND SKIN ISSUES INCLUDING SACRAL STAGE 3 PRESSURE ULCER, RT ELBOW STAGE 4 PRESSURE ULCER, LEFT HIP UNSTAGEABLE PRESSURE ULCER, RT HEEL WOUND WITH NECROTIC TISSUE, LEFT HEEL FRAGILE SCAR AND INCONTINENCE ASSOCIATED SKIN DAMAGE TO SCROTUM, ALL PRESENT ON ADMISSION. DR AMIN AND DR SORIA CALLED FOR SURGICAL AND DPM CONSULTS. 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 PT TO BE PLACED ON ISOFLEX LOW AIRLOSS BED. DISCUSSED SKIN PROTECTION RECOMMENDATIONS WITH NURSING STAFF. IN AGREEMENT WITH PLAN OF CARE. Addendum: 01/18/23 at 0849 by CARLO ORTIZ WNDNU Amended: Links added.
--- NOTE | 2023-01-18 08:45 | NUR ---
TD RN notes Received handover from AVELINO Baron. Patient's GCS [id number]. SPO2 >95% with 3L oxygen. Auscultated his lungs and noted that his right side is clear while the lung sounds over the left entire lung is diminished with crackles noted. Left FA #20 is dry and patent. Bed rails are up x2, call bedolla is placed within reach, bed is locked and placed in the lowest position. Will continue monitoring and care. .
[2023-01-18] MEDS ORDERED: APIXABAN 5 MG TABLET PO SCH (09:00)
[2023-01-18] MEDS ORDERED: ASPIRIN EC 81 MG TABLET.DR PO SCH (09:00)
[2023-01-18] MEDS ORDERED: ISOSORBIDE MONONITRATE (30MG) 30 MG TAB.SR.24H PO SCH (09:00)
[2023-01-18] MEDS ORDERED: METOPROLOL SUCCINATE 50 MG TAB.SR.24H PO SCH (09:00)
[2023-01-18] MEDS: PIPERACILLIN /TAZOBACTAM 3.375 G in IV D5W 50 ML IV SCH ×2 (11:20→11:22)
[2023-01-18 11:30] VITALS: BP 128/69
--- NOTE | 2023-01-18 11:30 | NUR ---
CHARLINE RN NOte Noted that patient was in distress as he was sweating. coal tram driver showed ST HR 110/min. BP 129/63mmhg, Spo2 97% with 3L oxygen. Will inform hospitalist.
--- NOTE | 2023-01-18 11:51 | NUR ---
CHARLINE RN NOTE MORTGAGE LOAN FUNDER Raad Kimball arrived and checked on patient. Use of accessory muscle was observed, he then ordered an ABG and stat 100mg lasix. Contacted RT Disha for stat ABG. SpO2 was 85%, 100% oxygen was given via NRM.
[2023-01-18] MEDS ORDERED: PROSOURCE / PROSTAT (PYXIS) 30 ML UDC GT SCH (12:00)
[2023-01-18] MEDS ORDERED: FUROSEMIDE 100 MG/10 ML VIAL IV SCH (12:05)
--- NOTE | 2023-01-18 12:10 | NUR ---
CHARLINE RN NOte RT arrived and tried to take the ABG. Noted that patient had very weak pulse. Switched to bagging patient instead of NRM.
--- NOTE | 2023-01-18 12:25 | NUR ---
CHARLINE RN Note Patient has stopped breathing and pulse is not palpable. Pupils are fixed and dilated at 8mm. EDUCATION ASSISTANT Raad Kimball pronounced at 12:25. Contacted family about patient's deterioration and asked them to come to the hospital immediately.
[2023-01-18] MEDS ORDERED: FUROSEMIDE 100 MG/10 ML VIAL IV ONE (12:30)
--- NOTE | 2023-01-18 12:35 | NUR ---
RT G DRAWN SAMPLE QNS MACHINE UNABLE TO READ
--- NOTE | 2023-01-18 15:01 | NUR ---
CHARLINE RN NOTe Was able to contact insurance account executive's office for report. Roping Machine Tender Tamra Valenzuela said that patient is not for insurance account executive. Last office was provided. Patient's family signed the document and was told about the process. Security came and moss picker the corpse at 15:01.
--- NOTE | 2023-01-18 15:47 | NUR ---
APS: FLAQUITA made APS report #[id number] for pt. who cme from home with multiple wounds. See wound nurse for details.
[2023-01-18] MEDS ORDERED: ARGININE/GLUTAMINE/CALCIUM BMB 1 EACH POWD.PACK PO SCH (17:00)
[2023-01-18] MEDS ORDERED: SACUBITRIL/VALSARTAN 1 EACH TABLET PO SCH (17:00)
[2023-01-18] MEDS ORDERED: TERAZOSIN HCL 5 MG CAPSULE PO SCH (18:00)
[2023-01-18] MEDS ORDERED: ATORVASTATIN 10 MG TABLET PO SCH (18:00)
== END 2023-01-18 12:35 | DRG 193 ==
LOC: ER 19:36 → TELE-TD 22:01
PROVIDERS: ADMIT Nurse Practitioner Acute Care; ATTEND Nurse Practitioner Acute Care
DX: J15.9 Unspecified bacterial pneumonia (principal); G92.8 Other toxic encephalopathy; I21.A1 Myocardial infarction type 2; J96.01 Acute respiratory failure with hypoxia; I50.43 Acute on chronic combined systolic (congestive) and diastolic (congestive) heart failure; D68.59 Other primary thrombophilia; I69.951 Hemiplegia and hemiparesis following unspecified cerebrovascular disease affecting right dominant side; N39.0 Urinary tract infection, site not specified; J93.9 Pneumothorax, unspecified; E87.20 Acidosis, unspecified; J90 Pleural effusion, not elsewhere classified; E87.1 Hypo-osmolality and hyponatremia; E44.0 Moderate protein-calorie malnutrition; I11.0 Hypertensive heart disease with heart failure; Z20.822 Contact with and (suspected) exposure to COVID-19; Z66 Do not resuscitate; Z74.01 Bed confinement status; F03.90 Unspecified dementia, unspecified severity, without behavioral disturbance, psychotic disturbance, mood disturbance, and anxiety; Z95.2 Presence of prosthetic heart valve; Z86.16 Personal history of COVID-19; Z95.1 Presence of aortocoronary bypass graft; Z79.01 Long term (current) use of anticoagulants; Z79.899 Other long term (current) drug therapy; Z95.0 Presence of cardiac pacemaker; Z79.82 Long term (current) use of aspirin; R79.89 Other specified abnormal findings of blood chemistry; E78.5 Hyperlipidemia, unspecified; E87.5 Hyperkalemia; D63.8 Anemia in other chronic diseases classified elsewhere; D69.6 Thrombocytopenia, unspecified; E86.1 Hypovolemia; I25.10 Atherosclerotic heart disease of native coronary artery without angina pectoris; Z74.09 Other reduced mobility; I25.5 Ischemic cardiomyopathy; N40.0 Benign prostatic hyperplasia without lower urinary tract symptoms; S31.000A Unspecified open wound of lower back and pelvis without penetration into retroperitoneum, initial encounter; X58.XXXA Exposure to other specified factors, initial encounter; Y92.9 Unspecified place or not applicable; I48.91 Unspecified atrial fibrillation
CPT/HCPCS: 36415; 36600; 71045-TC; 76604-TC; 80048-TC; 80076-TC; 81001; 82803-TC; 83605-TC; 83735-TC; 83880; 84100-TC; 84484-TC; 85025-TC; 85730-TC; 87040-TC; 87081-TC; 93307-TC; 94799-TC; A4223; C9803; G0378; J0456; J0696; J1940; J2543; J3370; J7050; J7060